=== PATIENT | female | born 1975 | race Caucasian/White ===

== ENCOUNTER 2023-01-14 21:33 | Emergency (ER) | payer BC ==
[2023-01-14] MEDS ORDERED: Augmentin 875-125 Tablet PO ONE (23:15)
[2023-01-14] MEDS ORDERED: Adacel Vial IM ONE ×2 (23:15→23:35)
[2023-01-14 23:19] VITALS: TEMP 97.3
[2023-01-14 23:34] VITALS: RESP 20; O2SAT 100
[2023-01-14] MEDS ORDERED: Augmentin 875-125 Tablet ONE (23:35)
--- NOTE | 2023-01-14 23:48 | ERPHSYRPT ---
- History of Present Illness Source: patient Exam Limitations: no limitations Patient Subjective Stated Complaint: pt was carrying her cat through a door and thinks that the cat's food got caught in the door. the cat yelled then scratched and bit her on right hand, forearm, and left thigh. pt states that the cat has not been vaccinated for several years. Triage Nursing Assessment: pt ambulated into room 8 independently with slow steady gait after standing on scales for weight acquisition. pt is alert and oriented times three, able to speak in complete sentences, able to move all extremities, and with resp even and unlabored. slight swelling noted to posterior right hand around "bite arriaga". color and cap refill within normal limits. pt reports slight burning pain at sites but doesn't want any medication for pain. denies numbness or tingling. Physician History: Pt's cat bit/scratched her on her L hand/L forearm 21:10. Pt is R handed, and pain is minimal. Cat has not had immunizations, but it can be observed. Pt will be given Tdap. Occurred: other (21:10) Method of Injury: other (Cat bite/scratch) Severity of Pain-Max: mild Severity of Pain-Current: mild Extremities Pain Location: forearm: right, hand: right Modifying Factors: Improves With: nothing Associated Symptoms: none Allergies/Adverse Reactions: No Known Drug Allergies Allergy (Verified 01/14/23 23:05) Hx Tetanus, Diphtheria Vaccination/Date Given: No Hx Influenza Vaccination/Date Given: Yes Hx Pneumococcal Vaccination/Date Given: No Immunizations Up to Date: No Travel Risk - International Travel Have you traveled outside of the country in past 3 weeks: No - Coronavirus Screening Are you exhibiting any of the following symptoms?: No Close contact with a COVID-19 positive Pt in past 14-21 Days: No - Vaccine Status Have you recieved a Covid-19 vaccination: Yes Assistant Counsel: Moderna - Vaccination Dates Date of 2cond Vaccination (if applicable): unknown - Review of Systems Constitutional: No Symptoms Eyes: No Symptoms Ears, Nose, & Throat: No Symptoms Respiratory: No Symptoms Cardiac: No Symptoms Abdominal/Gastrointestinal: No Symptoms Genitourinary Symptoms: No Symptoms Skin: No Symptoms Neurological: No Symptoms Psychological: No Symptoms Endocrine: No Symptoms Hematologic/Lymphatic: No Symptoms Immunological/Allergic: No Symptoms - Past Medical History Pertinent Past Medical History: Yes Neurological History: No Pertinent History ENT History: No Pertinent History Cardiac History: No Pertinent History Respiratory History: No Pertinent History Endocrine Medical History: No Pertinent History Musculoskeletal History: Other GI Medical History: No Pertinent History History: No Pertinent History Psycho-Social History: No Pertinent History Female Reproductive Disorders: No Pertinent History Other Medical History: abdominal pain,bloating. bilat plantar fasciitis. hx smoker - Past Surgical History Past Surgical History: Yes Neuro Surgical History: No Pertinent History Cardiac: No Pertinent History Respiratory: No Pertinent History Gastrointestinal: No Pertinent History Genitourinary: No Pertinent History Musculoskeletal: Other Female Surgical History: No Pertinent History Other Surgical History: colonoscopy 10-12years ago. bilat plantar fasciitis repair. - Social History Smoking Status: Former smoker Exposure to second hand smoke: No Drug Use: none Patient Lives Alone: No - Female History Hx Last Menstrual Period: 12/11/22 Hx Now: No - Nursing Vital Signs Nursing Vital Signs: Initial Vital Signs Pulse Rate 62 01/14/23 23:05 Respiratory Rate 20 01/14/23 23:05 Blood Pressure 132/68 01/14/23 23:05 O2 Sat by Pulse Oximetry 100 01/14/23 23:05 Pain Scale Pain Intensity 5 WNL - Physical Exam General Appearance: no apparent distress Eyes, Ears, Nose, Throat Exam: normal ENT inspection Neck Exam: normal inspection Cardiovascular/Respiratory Exam: normal breath sounds, regular rate/rhythm, heart sounds normal Abdominal Exam: non-tender Back Exam: normal inspection, No vertebral tenderness Shoulder Exam: normal inspection Elbow/Forearm Exam: soft tissue tenderness (Superficial scratch/bite distal, dorsal forearm) Wrist Exam: pain (Small superficial bite/scratch dorsal wrist) Hand Exam: laceration (Superficial bite/scratch dorsal R hand and base of R 1st digit/No erythema or edema/Good radial pulse, distal sensation, and capillary return) Neuro/Tendon Exam: normal sensation, normal motor functions, normal tendon functions, responds to pain, no evidence tendon injury, No motor deficit, No sensory deficit Mental Status Exam: alert, oriented x 3, cooperative Skin Exam: normal color, warm, dry, No rash SpO2 Interpretation: normal SpO2: 100 O2 Delivery: Room Air - Course Nursing assessment & vital signs reviewed: Yes Ordered Tests: Medication Summary Discontinued Medications Generic Name Dose Route Start Last Admin Trade Name Freq PRN Reason Stop Dose Admin Amoxicillin/Clavulanate Potassium 875 mg 08/28/23 23:15 01/14/23 23:40 Amox Tr/Potassium Clavulanate 875 Mg Tablet PO 01/14/23 23:16 875 mg STAT ONE Administration Amoxicillin/Clavulanate Potassium Confirm 01/14/23 23:35 Amox Tr/Potassium Clavulanate 875 Mg Tablet Administered 01/14/23 23:36 Dose 875 mg .ROUTE .STK-MED ONE Diphtheria/Tetanus/Acell Pertussis 0.5 ml 01/14/23 23:15 01/14/23 23:41 Tdap --Diph,Pertuss(Acell),Tet Vac/Pf 0.5 Ml Vial IM 01/14/23 23:16 0.5 ml .ONCE ONE Administration Diphtheria/Tetanus/Acell Pertussis Confirm 01/14/23 23:35 Tdap --Diph,Pertuss(Acell),Tet Vac/Pf 0.5 Ml Vial Administered 01/14/23 23:36 Dose 0.5 ml IM .STK-MED ONE - Progress Progress Note: 01/15/23 00:11 Nursing note and vital signs reviewed No food or housing insecurities noted Additional history per SO Tdap given Bites/scratches cleaned w Hibiclens and dressed per nursing Augmentin 875mg po Pt refused all pain meds Animal bite forms filled out per nursing Counseled pt/family regarding: diagnosis, need for follow-up Medical Desision Making - Independent Historian Additional History obtained from: Spouse - Risk of complications The pt has a mod risk of morbidity or mortality based on: Need for prescription drug management - Departure Departure Disposition: Home Clinical Impression: Cat bite Condition: Stable Critical Care Time: No Referrals: DOCTOR,NO FAMILY [NON-STAFF PHY W/O PRIVILEGES] - Follow up/PCP as directed Instructions: Animal Bites (DC) Additional Instructions: Continue with Augmentin tomorrow Wash bites twice a day with soap/water Watch for signs of infection-increasing redness/any pus/increasing swelling/temperature greater than 100.5 Prescriptions: Amox Tr/Potass Clav. 875 mg [Augmentin 875-125 Tablet] 875 mg PO BID 10 Days #20 tablet
[2023-01-15 00:03] VITALS: BP 116/75; PULSE 62
== END 2023-01-15 00:03 | disposition home or self-care (01) ==
LOC: ED 21:33
DX: S50.871A Other superficial bite of right forearm, initial encounter (principal); S60.571A Other superficial bite of hand of right hand, initial encounter; S60.871A Other superficial bite of right wrist, initial encounter; W55.01XA Bitten by cat, initial encounter; Z23 Encounter for immunization
CPT/HCPCS: 90471; 90715; 99283; A9270-GY